=== PATIENT | female | born 1985 | race Two or more races ===

== ENCOUNTER 2017-07-20 21:23 | Emergency (ER) | payer MEDICAID, SELFPAY | END 2017-07-20 22:10 | disposition home or self-care (01) | LOC: ERS 21:23 | DX: J11.1 Influenza due to unidentified influenza virus with other respiratory manifestations (principal) | CPT/HCPCS: 99283 ==

== ENCOUNTER 2017-07-21 15:40 | Emergency (ER) | payer MEDICAID ==
--- NOTE | 2017-07-21 17:56 | ULT ---
PELVIC ULTRASOUND: Indication: Vaginal bleeding. Technique: Transabdominal and transvaginal sonographic imaging performed with doppler color flow. FINDINGS: There is an ovoid hypoechoic focus of the expected region of the endometrium. This may relate to an e junior gestational sac. Pseudo-gestational sac is also a possibility as the presence of a pole an d yolk sac are not confirmed. Doppler evaluation reveals flow to each ovary. IMPRESSION: Nonspecific small hypoechoic focus of the endometrium which may relate to an early gestational sac wh ich could correlate to a 5 week 1 day gestation sonographically. The possibility of a pseudo-gestatio nal sac is not excluded, which can be seen with endometrial perforation from ectopic . Recom mend serial Beta HCG follow up as well as continued imaging follow up for confirmation. Code T POS: [facility]
[2017-07-23 01:06] LABS: Chlamydia by PCR DETECTED (NotDetected); GC by PCR Not Detected (NotDetected)
== END 2017-07-21 17:40 | disposition home or self-care (01) ==
LOC: ERS 15:40
DX: O20.0 Threatened abortion (principal); Z3A.01 Less than 8 weeks gestation of pregnancy
CPT/HCPCS: 36415; 76856; 84702; 86900; 86901; 87480; 87491; 87510; 87591; 87660

== ENCOUNTER 2018-03-29 22:47 | Emergency (ER) | payer MEDICAID, OTHER ==
--- NOTE | 2018-03-29 23:56 | RAD ---
LEFT FOOT THREE VIEWS: 03/29/18 HISTORY: Left foot injury. FINDINGS: Comminuted fracture of the distal half of the proximal phalanx big toe is apparent with minimal later al displacement of the distal fragment. Intra-articular extension to the proximal phalangeal head. Lisfranc joint alignment is anatomic. Pes planus on the lateral view. Mild hallux valgus and bunion d eformity. IMPRESSION: Comminuted intra-articular fracture of the proximal phalanx left big toe. POS: [facility]
== END 2018-03-30 | disposition home or self-care (01) ==
LOC: ERS 22:47
DX: S92.414A Nondisplaced fracture of proximal phalanx of right great toe, initial encounter for closed fracture (principal); W22.8XXA Striking against or struck by other objects, initial encounter; Y92.009 Unspecified place in unspecified non-institutional (private) residence as the place of occurrence of the external cause

== ENCOUNTER 2019-01-02 11:52 | Day surgery (SDC) | payer OTHER ==
[2019-01-02 12:23] VITALS: BP 110/72; TEMP 98.8; BMI 26.9
--- NOTE | 2019-01-02 12:28 | PDOC.FPROB ---
FMR OB H&P: HPI - History of Present Illness Chief Complaint: spotting Indentification: 33 y/o @ 21.1 WGA by LMP/9.5 wk sono History of Present Illness: Patient reports yesterday she began having vaginal spotting and it has continued today. She describes it as a small amount, but there are some small blood clots. She denies any recent sexual intercourse. Denies dysuria, hematuria , vaginal d/c, LOF, ctx. Endorses good movement. Primary Care Physician: Dr. 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 Had Colpo earlier in that showed HEATHER 3 - Surgical History Sx History: 1 prior section in 2006 - Social History Social History: Denies tobacco, EtOH, or drug use - Family History Family History: Denies FMR OB H&P: Medications - Current Home Medications: Medication Instructions Recorded Confirmed Type Vit,Calc76/Iron/Folic 1 tablet PO DAILY 01/02/19 01/02/19 History [Pnv 29-1 Tablet] Allergies/Adverse Reactions: Allergies Allergy/AdvReac Type Severity Reaction Status Date / Time No Known Allergies Allergy Verified 01/02/19 12:18 FMR OB H&P: ROS - Review of Systems General: denies: fever/chills, fatigue ENT: denies: nasal congestion, rhinorrhea Cardiovascular: denies: chest pain, edema Respiratory: denies: cough, shortness of breath Gastrointestinal: denies: abdominal pain, nausea, vomiting, diarrhea Genitourinary (Female): reports: vaginal bleeding. denies: dysuria, hematuria, vaginal discharge, contractions, vaginal pressure Musculoskeletal: denies: pain, tenderness Neurologic: denies: numbness, weakness Integumentary: denies: itching, rash Endocrine: denies: cold intolerance, heat intolerance Hematologic/Lymphatic: denies: prolonged or excessive bleeding, enlarged lymph nodes FMR OB H&P: Vital Signs - Maternal Vital signs: Vital Signs - First Documented Temp Pulse Resp BP 98.8 F 83 16 110/72 01/02/19 12:17 01/02/19 12:17 01/02/19 12:17 01/02/19 12:17 - Heart Tones Baseline: 140 FMR OB H&P: Physical Exam - Physical Exam General: NAD, awake, alert and oriented HEENT: EOMI, MMM, conjunctiva clear, no scleral icterus, grossly normal vision, grossly normal hearing Neck: supple, FROM Heart: RRR, normal S1/S2, no murmurs/rubs/gallops, pulses present, no edema General: CTAB, no respiratory distress, good air movement, no rales/rhonchi, no wheezing Abdomen: soft, gravid, non-tender Musculoskeletal: normal gait and station, pulses present Neurological: cranial nerves II through XII intact, no focal deficit Skin: good tugor, capillary refill <2 seconds Lymphatic: no unusual bruising or bleeding, no purpura Psychiatric: intact recent and remote memory, good judgement and insight - Pelvic Exam Vulva: normal hair distribution Cervix: no masses, no lesions, no blood Presentation: cephalic, confirmed on bedside sono FMR OB H&P: A/P - Problem List (1) Vaginal spotting Status: Acute Code(s): N93.9 - ABNORMAL UTERINE AND VAGINAL BLEEDING, UNSPECIFIED Assessment and Plan: speculum exam revealed no areas of bleeding and no blood from os. Could be 2/2 friable cervix especially in the setting of HEATHER 3. Bedside sono revealed posterior placenta, far from cervical os -Gave reassurance and counseled to f/u for bleeding, decreased movement, ctx -Anatomy US scheduled with MFM for 01/13 and f/u appt in my clinic on 01/16. Disposition: d/c home with labor and bleeding precautions and with close follow-up in my clinic Discussion: Date/Time: 01/02/19 5406 This H&P was discussed with Dr. Myers who agrees with the above documentation and plan. Signature: Camryn Hernandez MD, PGY-3 Addendum - Attending - Attending Attestation Date/Time: 01/02/19 4679 I personally evaluated the patient and discussed the management with Dr. Hernandez I agree with the History, Examination, Assessment and Plan documented above with any addition or exceptions noted below.
== END 2019-01-02 12:55 | disposition home or self-care (01) ==
LOC: L&D/OP 11:52
PROVIDERS: ATTEND Student in an Organized Health Care Education/Training Program
DX: O26.852 Spotting complicating pregnancy, second trimester (principal); Z3A.21 21 weeks gestation of pregnancy
CPT/HCPCS: 76815; 99282

== ENCOUNTER 2019-03-31 09:29 | Day surgery (SDC) | payer OTHER ==
[2019-03-31 10:16] VITALS: BP 110/73; TEMP 98.8; BMI 29.3
[2019-03-31] MEDS ORDERED: hydrALAZINE 20 MG/ML VIAL SLOW IVP PRN (11:19)
--- NOTE | 2019-03-31 11:33 | PDOC.FPROB ---
FMR OB H&P: HPI - History of Present Illness Chief Complaint: pink spotting History of Present Illness: Patient is a 33F presenting with pink spotting. Patient reports that the spotting started several days ago, but she noticed darker red spotting this morning so she called [facility] and they recommended that she come to L&D to be evaluated. She reports that the spotting is mostly apparent on her toilet paper, but at times she'll see "pink tissue" in the toilet bowl. Reports that she is feeling baby moving, denies abnormal vaginal discharge other than the spotting, and reports of an occasional contraction. Denies recent sexual intercourse. Denies n/v/changes in vision, cp, sob, swelling in her legs. 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/18, s/p colpo -CIN3 hx of chlamydia - Surgical History Sx History: 2006 - Social History Social History: neg smoke, etoh, drugs - Family History Family History: non-contributory FMR OB H&P: Medications - Current Home Medications: Medication Instructions Recorded Confirmed Type Vit,Calc76/Iron/Folic 1 tablet PO DAILY 01/02/19 03/31/19 History [Pnv 29-1 Tablet] Metronidazole [metroNIDAZOLE] 500 mg PO BID #14 tab 03/31/19 Rx Allergies/Adverse Reactions: Allergies Allergy/AdvReac Type Severity Reaction Status Date / Time No Known Allergies Allergy Verified 01/02/19 12:18 FMR OB H&P: ROS - Review of Systems General: denies: weight/appetite/sleep changes, recent trauma Eyes: denies: eye pain, vision changes ENT: denies: rhinorrhea, sore throat Cardiovascular: denies: chest pain, palpitation Respiratory: denies: cough, congestion Gastrointestinal: denies: abdominal pain, cramping Genitourinary (Female): reports: vaginal bleeding (pink spotting), contractions (occasional). denies: dysuria Musculoskeletal: denies: stiffness, tenderness Neurologic: denies: syncope, seizures Integumentary: denies: rash, lesions FMR OB H&P: Vital Signs - Maternal Vital signs: Vital Signs - First Documented Temp Pulse Resp BP 98.8 F 90 18 110/73 03/31/19 10:12 03/31/19 10:12 03/31/19 10:12 03/31/19 10:12 - Heart Tones Baseline: 135 Variability: moderate Acceleration: present Deceleration: absent FMR OB H&P: Physical Exam - Physical Exam General: NAD, awake, alert and oriented HEENT: EOMI, MMM Neck: FROM, trachea midline Chest: non-tender to palpation, no lesions Heart: RRR, normal S1/S2 General: CTAB, no respiratory distress Abdomen: soft, gravid, non-tender Musculoskeletal: pulses present, FROM in all four extremities Neurological: no tremor, no focal deficit Skin: no rash, no jaundice Lymphatic: no unusual bruising or bleeding, no purpura Psychiatric: intact recent and remote memory, good judgement and insight FMR OB H&P: A/P - Problem List (1) Status: Acute (2) Vaginal spotting Status: Acute Code(s): N93.9 - ABNORMAL UTERINE AND VAGINAL BLEEDING, UNSPECIFIED Disposition: 33F at 33.5wga presents with vaginal spotting #Vaginal Spotting -no blood or active bleeding noted on vaginal exam, small amount of white mucus discharge -abdomen non-tender to palpation -patient reports occasional contractions, c/s monitoring - monitoring reactive strip -no recent vaginal intercourse -patient has HEATHER 3, likely making her cervix more friable -VP3, G/C today -assess results of VP3 and treat appropriately if positive, will f/u gc/c results and update patient -anatomy scan showed placenta posterior, no concern for placenta previa -assessment not consistent with placental abruption, as no bleeding on vaginal exam and no abdominal pain or ttp Dispo: pending vp3 results, will call patient with results of gc/chlamydia Discussion: Date/Time: 03/31/19 0919 This H&P was discussed with [April] and [Kirk] who agree with the above documentation and plan. Signature: Victorina Bullock MD- PGY1 Addendum - Attending - Attending Attestation Date/Time: 03/31/19 9378 I personally evaluated the patient and discussed the management with Dr. Bullock. I agree with the History, Examination, Assessment and Plan documented above with any addition or exceptions noted below. Exam is not consistent with abruption, there is no active bleeding, and there is no placenta previa. tracing is normal.
--- NOTE | 2019-03-31 12:54 | PDOC.EVN ---
Event Note - Event Note Event Note: Patient's Vp3 positive for gardnerella. monitoring reactive strip, baseline 135. Patient's vss stable, denies abdominal pain or abdomen ttp. Sent script for flagyl 500mg BID x 7 days. Provided patient with reassurance, she has f/u appt with Dr. Hernandez next week. Provided patient with return precautions. Will call patient with gc/c results. Patient agreeable to current plan of care. Discussed plan with Dr. Chen and Dr. Bradley who are in agreement.
== END 2019-03-31 12:57 | disposition home or self-care (01) ==
LOC: L&D/OP 09:29
PROVIDERS: ATTEND Emergency Medicine
DX: O26.853 Spotting complicating pregnancy, third trimester (principal); Z3A.33 33 weeks gestation of pregnancy
CPT/HCPCS: 87480; 87491; 87510; 87591; 87660; 99285

== ENCOUNTER 2019-05-13 15:55 | Inpatient (IN) | payer OTHER ==
--- NOTE | 2019-05-13 14:24 | PDOC.FPROB ---
FMR OB H&P: HPI - History of Present Illness Chief Complaint: TOLAC IOL Indentification: 33 y/o @ 39.6 WGA by LMP/9.5wk sono History of Present Illness: Pt reports good movement. Denies ctx, LOF, vaginal bleeding, d/c. She denies any complaints today. Primary Care Physician: Dr. Hernandez/Dr. 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: HSIL/HR-HPV positive with CINIII on colpo - Surgical History Sx History: x1 - Social History Social History: Denies tobacco, EtOH, or drug use - Family History Family History: Multiple relatives with HTN FMR OB H&P: Medications - Current Home Medications: Medication Instructions Recorded Confirmed Type Vit,Calc76/Iron/Folic 1 tablet PO DAILY 01/02/19 03/31/19 History [Pnv 29-1 Tablet] Allergies/Adverse Reactions: Allergies Allergy/AdvReac Type Severity Reaction Status Date / Time No Known Allergies Allergy Verified 01/02/19 12:18 FMR OB H&P: ROS - Review of Systems General: denies: fever/chills, weight/appetite/sleep changes Eyes: denies: vision changes, double vision ENT: denies: nasal congestion, sore throat Cardiovascular: denies: chest pain, edema Respiratory: denies: cough, shortness of breath Gastrointestinal: denies: abdominal pain, vomiting Genitourinary (Female): denies: dysuria, hematuria, vaginal discharge, vaginal bleeding, contractions, vaginal pressure Musculoskeletal: denies: pain, swelling Neurologic: denies: numbness, weakness Integumentary: denies: itching, rash Hematologic/Lymphatic: denies: prolonged or excessive bleeding, enlarged lymph nodes FMR OB H&P: Vital Signs - Maternal Vital signs: BP 119/82, HR 99, O2 sat 96% on RA, RR 14 - Heart Tones Baseline: 130 Variability: moderate Acceleration: absent Deceleration: absent Category: category 1 [place] contractions every: none FMR OB H&P: Physical Exam - Physical Exam General: NAD, awake, alert and oriented HEENT: MMM, conjunctiva clear, grossly normal vision, grossly normal hearing Neck: supple, FROM Heart: pulses present, no edema General: no respiratory distress, good air movement Abdomen: soft, gravid, non-tender Musculoskeletal: normal gait and station, pulses present, FROM in all four extremities Neurological: cranial nerves II through XII intact, no focal deficit Skin: good tugor, capillary refill <2 seconds Lymphatic: no unusual bruising or bleeding, no purpura Psychiatric: intact recent and remote memory, good judgement and insight FMR OB H&P: A/P - Problem List (1) Encounter for trial of labor Status: Acute Code(s): [id number] - Assessment and Plan: Admit to L&D for TOLAC IOL Pt with two successful 's, was indicated for breech presentation. Has been counseled on risks of TOLAC and pt wishes to proceed. -will place balloon and then start pitocin -Penicillin for GBS -Continuous monitoring (2) H/O section Status: Acute Code(s): Z98.891 - HISTORY OF UTERINE SCAR FROM PREVIOUS SURGERY Assessment and Plan: Pt with h/o for breech presentation with failed ECV -Plan for TOLAC (3) H/O vaginal after Status: Acute Code(s): Z98.891 - HISTORY OF UTERINE SCAR FROM PREVIOUS SURGERY Assessment and Plan: Pt with h/o 2 successful 's, plans for TOLAC again (4) HEATHER III (cervical intraepithelial neoplasia III) Status: Acute Assessment and Plan: Plan for LEEP Disposition: Admit to L&D for IOL for TOLAC Discussion: Date/Time: 05/13/19 1870 This H&P was discussed with Dr. Estevez who agrees with the above documentation and plan. Signature: Camryn Hernandez MD, PGY-3 Addendum - Attending - Attending Attestation Date/Time: 05/14/19 0327 I personally evaluated the patient and discussed the management with Dr. Hernandez I agree with the History, Examination, Assessment and Plan documented above with any addition or exceptions noted below. balloon eIOL. prior x2. expectant management. Proctored by Dr. Rosalind Barron.
[~2019-05-13 15:55] MED LIST: Bupivacaine HCl 0.5%/Epinephrine 1:200,000/PF 30 ml Vial ONE
[2019-05-13] MEDS ORDERED: Ondansetron PF 4 MG/2 ML Vial IVP PRN (16:28)
[2019-05-13] MEDS ORDERED: Butorphanol Tartrate 1 MG/ML VIAL SLOW IVP PRN (16:28)
[2019-05-13] MEDS ORDERED: NS w/ Oxytocin 10 units 500 ML IV SCH (16:28)
[2019-05-13] MEDS ORDERED: Ibuprofen 800 MG TAB PO PRN (16:28)
[2019-05-13] MEDS ORDERED: hydrALAZINE 20 MG/ML VIAL SLOW IVP PRN (16:28)
[2019-05-13] MEDS ORDERED: NS / Oxytocin 40 units/1000ml 1,000 ML IV PRN (16:28)
[2019-05-13] MEDS ORDERED: Promethazine HCl 25 MG/ML VIAL IM PRN (16:28)
[2019-05-13] MEDS ORDERED: Lidocaine 1% (PF) 30 ML VIAL SC PRN (16:28)
[2019-05-13] MEDS: Lactated Ringer's 1,000 ML IV SCH (16:41)
[2019-05-13] MEDS ORDERED: Penicillin G Potassium 5 MILL.UNITS in Sodium Chloride 0.9% 100 ML IVPB SCH (16:45)
[2019-05-13 16:57] LABS: Hemoglobin 12.3 g/dL (12.0-16.0); Mean Corpuscular HGB CONC 34.7 g/dL (32.0-36.0); Mean Corpuscular Hemoglobin 33.2 pg (27.0-31.0); Mean Corpuscular Volume 95.7 fL (78.0-98.0); Mean Platelet Volume 8.5 fL (7.4-10.4); Platelet Count 197 thou/uL (130-400); RBC Distribution Width 12.2 % (11.5-14.5); Red Blood Cell (RBC) Count 3.71 mill/uL (4.20-5.40)
[2019-05-13 17:22] VITALS: BMI 29.8
[2019-05-13 17:44] LABS: Syphilis Antibody Nonreactive (Nonreactive); Syphilis Antibody Index 0.37 S/CO (<1.00 Non-Reactive)
[2019-05-13 17:53] LABS: HBSAg Index 0.25 S/CO (0-0.99); Hep B Surf Ag Non-Reactive S/CO (NonReactive)
--- NOTE | 2019-05-13 18:18 | PDOC.LDPN ---
Labor & Delivery Progress Note - Subjective Subjective: comfortable - Objective Vital signs reviewed and normal: yes General: NAD SVE: 2.5/50/-2 @ 1800 FHT: category 1, variability present Procedures: espinoza balloon placed and inflated to 30 mL successfully @ 1815 - Assessment (1) Encounter for trial of labor Code(s): [id number] - Status: Acute Comment: Espinoza balloon placed successfully and inflated to 30mL -Cervical checks q4h -Monitor FHT -Penicillin for GBS -Start pitocin once balloon out (2) H/O section Code(s): Z98.891 - HISTORY OF UTERINE SCAR FROM PREVIOUS SURGERY Status: Acute (3) H/O vaginal after Code(s): Z98.891 - HISTORY OF UTERINE SCAR FROM PREVIOUS SURGERY Status: Acute Plan: continue plan of care Addendum - Attending - Attending Attestation Date/Time: 05/13/19 1823 Present for placement. I did not check behind resident. FC placed on traction to inner thigh.
--- NOTE | 2019-05-13 21:07 | PDOC.LDPN ---
Labor & Delivery Progress Note - Subjective Subjective: comfortable - Objective Vital signs reviewed and normal: yes General: NAD, resting Uterine fundus: non tender SVE: 3/60/-2 FHT: category 1, variability present - Assessment (1) HEATHER III (cervical intraepithelial neoplasia III) Status: Acute (2) Encounter for trial of labor Code(s): [id number] - Status: Acute (3) H/O section Code(s): Z98.891 - HISTORY OF UTERINE SCAR FROM PREVIOUS SURGERY Status: Acute (4) H/O vaginal after Code(s): Z98.891 - HISTORY OF UTERINE SCAR FROM PREVIOUS SURGERY Status: Acute (5) Status: Acute Plan: pitocin for augmentation -: 33F @ 39.6wga presents for IOL for TOLAC #sIUP #hx of , hx of succesful s/p #TOLAC -balloon placed at approx 1830 -check @ 2030, balloon was in vaginal vault and no longer in cervix, fluid removed from balloon and balloon removed -check at 2100: 3/60/-2, Mora score of 6 -FHT: reactive strip, baseline 120, uterine irritability appreciable at this time -will start pitocin slowly at this time, max of 10 -cervical checks q4h #GBS positive -penicillin started at 1815 Dispo: L&D for IOL for TOLAC; Mora score 6, will start pitocin with slow titration at this time. Repeat cervical check in 4 hours or sooner as needed Patient evaluated by and case discussed with Dr. Barron who is in agreement with current plan of care Addendum - Attending - Attending Attestation Date/Time: 05/14/19 1213 I personally evaluated the patient and discussed the management with the team. I agree with the History, Examination, Assessment and Plan documented above with any addition or exceptions noted below.
[2019-05-13] MEDS: Penicillin G 2.5 MILL.units 2.5 MILL.UNITS in Premix Bag 1 BAG IVPB SCH ×2 (22:28→22:30)
[2019-05-14] MEDS ORDERED: Fentanyl 4 mcg/Bup 0.1% Cadd 100 ML ONE (01:14)
--- NOTE | 2019-05-14 01:17 | PDOC.LDPN ---
Labor & Delivery Progress Note - Subjective Subjective: comfortable, painful contractions - Objective Vital signs reviewed and normal: yes General: NAD, breathing through contractions Uterine fundus: non tender SVE: 80/-1 FHT: category 1, variability present [place] contractions every: q2-4min - Assessment (1) HEATHER III (cervical intraepithelial neoplasia III) Status: Acute (2) Encounter for trial of labor Code(s): [id number] - Status: Acute (3) H/O section Code(s): Z98.891 - HISTORY OF UTERINE SCAR FROM PREVIOUS SURGERY Status: Acute (4) H/O vaginal after Code(s): Z98.891 - HISTORY OF UTERINE SCAR FROM PREVIOUS SURGERY Status: Acute (5) Status: Acute Plan: continue plan of care, pitocin for augmentation -: 33F @ 40wga presents for IOL for TOLAC #sIUP #hx of , hx of successful s/p #TOLAC -check at 0110: /-1; bloody show -FHT: reactive strip, baseline 130, ctx q2-4 -pitocin at 7, continue with slow titration, max 10 -cervical checks q2h -patient is going to get her epidural #GBS positive -penicillin started at 1815 Dispo: L&D for IOL for TOLAC; Reactive strip; /-1, continue slow pitocin titration. Repeat cervical check in 2 hours or sooner as needed Case discussed with Dr. Barron who is in agreement with current plan of care Addendum - Attending - Attending Attestation Date/Time: 05/14/19 1214 I personally evaluated the patient and discussed the management with Dr. Bullock. I agree with the History, Examination, Assessment and Plan documented above with any addition or exceptions noted below.
[2019-05-14] MEDS: Lactated Ringer's 1,000 ML IV SCH (01:30)
[2019-05-14] MEDS ORDERED: Naloxone HCl 0.4 mg/ml Vial IVP PRN ×2 (01:54)
[2019-05-14] MEDS ORDERED: Ondansetron PF 4 MG/2 ML Vial IVP PRN (01:54)
[2019-05-14] MEDS ORDERED: ePHEDrine/0.9% NaCl/PF SYRINGE 50 mg/10 ml SLOW IVP PRN (01:54)
[2019-05-14] MEDS ORDERED: Promethazine HCl 25 MG/ML VIAL IM PRN (01:54)
[2019-05-14] MEDS ORDERED: Acetaminophen 325 MG TAB PO PRN (01:54)
[2019-05-14] MEDS ORDERED: Lactated Ringer's 500 ML IV PRN (01:54)
[2019-05-14] MEDS ORDERED: diphenhydrAMINE 50 MG/ML VIAL IVP PRN (01:54)
[2019-05-14] MEDS ORDERED: Fentanyl 4 mcg/Bupivacaine 0.1% Cassette 100 ML EPIDURAL SCH (02:00)
[2019-05-14] MEDS ORDERED: Communication Order-Pharmacy FS SCH (02:00)
--- NOTE | 2019-05-14 03:43 | PDOC.EVN ---
Event Note - Event Note Event Note: uncomplicated successful . See my dictated note for details. Document # [id number].
[2019-05-14] MEDS ORDERED: Lanolin Ointment 7 GM TUBE TOP PRN (04:59)
[2019-05-14] MEDS ORDERED: NS / Oxytocin 40 units/1000ml 1,000 ML IV SCH (04:59)
[2019-05-14] MEDS ORDERED: hydrALAZINE 20 MG/ML VIAL SLOW IVP PRN (04:59)
[2019-05-14] MEDS ORDERED: Milk Of Magnesia 30 ML UDCUP PO PRN (04:59)
[2019-05-14] MEDS ORDERED: Bisacodyl 10 MG SUPP PR PRN (04:59)
--- NOTE | 2019-05-14 06:16 | DN ---
DATE OF PROCEDURE: 05/14/2019 RESIDENTS: 1. Victorina Bullock DO. 2. Camryn Hernandez MD. ATTENDING PHYSICIAN: Toney Estevez MD PROCTORING PHYSICIAN: Jose Eduardo Barron MD. PROCEDURE PERFORMED: Vaginal after . ANESTHESIA: Epidural. ESTIMATED BLOOD LOSS: 50 mL. PREPROCEDURE DIAGNOSIS: 1. Term elective induction of labor at 39 plus 6 weeks. 2. History of prior section x1, indicated for breech presentation, status post failed external cephalic version. 3. Prior vaginal after x2. 4. Cervical intraepithelial neoplasia 3, diagnosis . 5. Group B Streptococcus positive, status post 3 doses of penicillin. POSTPROCEDURE DIAGNOSES: 1. Term intrauterine , delivered at 40.0 weeks. 2. History of prior section x1, indicated for breech presentation, status post failed external cephalic version. 3. Prior vaginal after x2. 4. Cervical intraepithelial neoplasia 3, diagnosis . 5. Group B Streptococcus positive, status post 3 doses of penicillin. INDICATIONS: Ms. Nilton Islas is a pleasant 33-year-old female , who presented for elective induction of labor. She had prior with 2 prior successful VABCs. Risks, benefits, and alternatives were explained. The patient agreed to proceed with induction. DELIVERY IN DETAIL: After an intrapartum course remarkable for recurrent variable deceleration during the last 5 minutes of the delivery, a viable female infant was delivered over intact perineum in the occipital anterior position. The anterior shoulder and remainder of the body were delivered without complication. No nuchal cords were noted. Cord was clamped and cut after delayed cord clamping. Cord gas segment was obtained due to recurrent variable decelerations immediately proceeding . Cord blood was obtained for infant's type screening and routine lab analysis. Placenta delivered shortly after the infant without complications. Fundus was found to be firm. Cervix and vagina were inspected and found to be free of lacerations. Counts were correct x2. The patient and tolerated the procedure well and went to the routine unit and nursery following routine recovery and care respectively. FINDINGS: 1. Grossly normal viable female infant, born at 0316 hours with Apgars of 8 and 9 at one and five minutes respectively. 2. Grossly normal placenta with three-vessel cord, intact, discarded. 3. The umbilical cord arteries were insufficient for cord gas analysis. As a result, this was not sent to the lab for analysis. 4. Dr. Jose Eduardo Barron, was present as jin during the procedure. Job ID: [id number] [id number]
[2019-05-14] MEDS: Ibuprofen 800 MG TAB PO SCH ×3 (07:54→21:34)
[2019-05-14] MEDS: Penicillin G 2.5 MILL.units 2.5 MILL.UNITS in Premix Bag 1 BAG IVPB SCH ×2 (07:59→08:00)
[2019-05-14] MEDS: Ferrous Sulfate 325 MG TAB PO SCH ×2 (08:00→17:43)
[2019-05-14] MEDS ORDERED: FLU VACC QS2019-20(6MOS UP)/PF 60 MCG/0.5 ML SYRINGE IM ONE (09:00)
[2019-05-14] MEDS ORDERED: Adacel (T-DAP) 0.5 ML SYRINGE IM ONE (09:00)
[2019-05-14] MEDS: Docusate Calcium (SURFAK) 240 MG CAP PO SCH ×2 (09:06→21:34)
[2019-05-14] MEDS: Prenatal Vitamin 1 TAB PO SCH (09:06)
[2019-05-15] MEDS: Ibuprofen 800 MG TAB PO SCH (06:05)
--- NOTE | 2019-05-15 07:20 | PDOC.OBPPN ---
FMR OB PN: Subj - Interval History Day: 1 33 y/o @ 40.0 WGA by LMP/9.5wk sono delivered via @ 0316 on . Pt doing well. No concerns today. Reports pain well controlled with ibuprofen. Minimal lochia. Breast feeding without difficulty. Has been ambulating and voiding. Denies N/V, CP, SOB. FMR OB PN: Obj - Maternal Vital signs: BP: 116/74 HR: 85 RR: 18 Tmax: 98.4 Pox: 97% on RA Wt: 83kg FMR OB PN: Exam - Physical Exam General: NAD, awake, alert and oriented HEENT: MMM, conjunctiva clear, grossly normal vision, grossly normal hearing Neck: supple, no LAD Heart: RRR, normal S1/S2, no murmurs/rubs/gallops, pulses present, no edema General: CTAB, no respiratory distress, good air movement, no rales/rhonchi, no wheezing Abdomen: soft, fundus(cm) (firm 1 cm below umbilicus) Musculoskeletal: pulses present, FROM in all four extremities Neurological: no clonus, no focal deficit Skin: good tugor, capillary refill <2 seconds Lymphatic: no unusual bruising or bleeding, no purpura Psychiatric: intact recent and remote memory, good judgement and insight FMR OB PN: A/P - Problem List (1) , delivered, current hospitalization Status: Acute Code(s): O34.219 - MATERNAL CARE FOR UNSP TYPE SCAR FROM PREVIOUS DEL Assessment and Plan: Continue routine care -PNV -Ibuprofen for pain control -Encourage breast feeding -Encourage ambulation -Depo for contraception (2) HEATHER III (cervical intraepithelial neoplasia III) Status: Acute Assessment and Plan: Plan for PP LEEP Disposition: d/c home pending baby Discussion: Date/Time: 05/15/19 8718 This H&P was discussed with Dr. Hung who agrees with the above documentation and plan. Signature: Camryn Hernandez MD, PGY-3 Addendum - Attending - Attending Attestation Date/Time: 05/15/19 1042 I personally evaluated the patient and discussed the management with Dr. Hernandez I agree with the History, Examination, Assessment and Plan documented above with any addition or exceptions noted below. Doing well. Meeting milestones. Uncomplicated pp course. Lochia appropriate. No lacerations. Voiding well. Nontender and firm fundus. Ok to d/c to home. Follow up with PCP in 2 wks. Lorna
[2019-05-15] MEDS: Ferrous Sulfate 325 MG TAB PO SCH (07:50)
[2019-05-15 08:00] VITALS: BP 115/70; TEMP 98.2
[2019-05-15] MEDS: Docusate Calcium (SURFAK) 240 MG CAP PO SCH (09:12)
[2019-05-15] MEDS: Prenatal Vitamin 1 TAB PO SCH (09:12)
== END 2019-05-15 13:08 | disposition home or self-care (01) | DRG 807 ==
LOC: L&D 15:55 → 3SW 05-14 06:02
PROVIDERS: ADMIT Emergency Medicine; ATTEND Emergency Medicine
PROC: 10E0XZZ Delivery of Products of Conception, External Approach (ICD-10-PCS; principal; 2019-05-14)
PROC: 3E033VJ Introduction of Other Hormone into Peripheral Vein, Percutaneous Approach (ICD-10-PCS; 2019-05-14)
DX: O34.43 Maternal care for other abnormalities of cervix, third trimester (principal); Z37.0 Single live birth; Z3A.36 36 weeks gestation of pregnancy; D06.9 Carcinoma in situ of cervix, unspecified; O99.824 Streptococcus B carrier state complicating childbirth
CPT/HCPCS: 36415; 51702; 85027; 86780; 86850; 86900; 86901; 87340; J0670; J2540; J2590; J3490

== ENCOUNTER 2021-06-04 12:50 | Emergency (ER) | payer OTHER ==
[2021-06-04 16:43] LABS: SARS-CoV-2 PCR by NAA DETECTED (NotDetected)
== END 2021-06-04 13:30 | disposition home or self-care (01) ==
LOC: ERS 12:50
DX: U07.1 COVID-19 (principal)
CPT/HCPCS: 99283; U0003; U0005

== ENCOUNTER 2021-09-09 18:19 | Emergency (ER) | payer OTHER, SELFPAY ==
[2021-09-09] MEDS ORDERED: Dexamethasone 4 MG TAB ONE (20:57)
[2021-09-09] MEDS ORDERED: Bicillin LA 1.2 MILLION UNITS/2 ML SYRINGE ONE (22:21)
== END 2021-09-09 22:41 | disposition home or self-care (01) ==
LOC: ERS 18:19
DX: J02.0 Streptococcal pharyngitis (principal); Z79.899 Other long term (current) drug therapy
CPT/HCPCS: 87430; 96372; 99282; J0561; J8540